=== PATIENT | male | born 1985 ===

== ENCOUNTER 2025-02-24 00:49 | Emergency (ER) | payer SELFPAY ==
[~2025-02-24] VITALS: Ht 180.3 cm; Wt 82.0 kg
[2025-02-24 01:15] VITALS: TEMP 36.9
[2025-02-24] MEDS ORDERED: PROPOFOL 200MG/20ML VIAL IV ONE (02:45)
[2025-02-24 03:07] LABS: BASOPHILS % 0.2 % (0.0-2.0); EOSINOPHILS % 0.1 % (0.0-5.0); HEMATOCRIT. 43.7 % (42.0-52.0); HEMOGLOBIN. 14.6 g/dL (14.0-18.0); LYMPHOCYTES % 14.6 % (20.0-50.0); MEAN PLATELET VOLUME 8.1 fl (7.4-10.4); MONOCYTES % 5.6 % (2.0-8.0); NEUTROPHILS % 79.5 % (40.0-76.0); PLATELET 270 x1000/uL (130-400); RED BLOOD CELL COUNT 4.61 mill/uL (4.7-6.1); RED CELL DISTRIBUTION WIDTH 13.0 % (11.6-14.6)
[2025-02-24 03:15] LABS: CREATININE 1.2 mg/dL (0.6-1.3)
[2025-02-24 03:16] LABS: UREA NITROGEN BLOOD 10 mg/dL (9-23)
[2025-02-24] MEDS: ONDANSETRON HCL 4MG/2ML INJ IV ONE (04:18)
[2025-02-24] MEDS: MORPHINE SULFATE 4 MG/ML INJ (FOR IV/IM USE) IV ONE (04:19)
[2025-02-24 04:23] VITALS: O2SAT 97
[2025-02-24] MEDS: SODIUM CHLORIDE 0.9% 1,000 ML IV ONE (04:23)
[2025-02-24] MEDS ORDERED: IBUP-2029 MT (05:45)
[2025-02-24] MEDS ORDERED: IOHEXOL-350 100 ML BOTTLE ONE (06:58)
[2025-02-24 07:15] VITALS: BP 112/73; PULSE 94; RESP 14; O2SAT 96
== END 2025-02-24 07:15 | disposition home or self-care (01) ==
LOC: ER 00:49
DX: S43.005A Unspecified dislocation of left shoulder joint, initial encounter (principal); S09.90XA Unspecified injury of head, initial encounter; F17.200 Nicotine dependence, unspecified, uncomplicated; F12.90 Cannabis use, unspecified, uncomplicated; Y08.89XA Assault by other specified means, initial encounter; Y93.89 Activity, other specified; Y92.89 Other specified places as the place of occurrence of the external cause; Y99.8 Other external cause status
CPT/HCPCS: 99285; 71275; 74174; 23650; 96374; 71045; 96375; 96361; 80048; 85025; 86850; 86900; 86901; 36415; 73030; 70450; 72125; 99152; Q9967; J2405; J2704; J2270; J7030; A4565